=== PATIENT | female | born 1980 | race Asian ===

== ENCOUNTER 2018-12-12 08:48 | Emergency (ER) | payer SELFPAY ==
[~2018-12-12] VITALS: Ht 157.5 cm; Wt 64.0 kg
[2018-12-12] MEDS ORDERED: MECLIZINE 25MG TABLET PO ONE (10:30)
[2018-12-12 12:36] VITALS: BP 116/75
== END 2018-12-12 12:37 | disposition home or self-care (01) ==
LOC: ER 09:14
DX: O26.892 Other specified pregnancy related conditions, second trimester (principal); H81.10 Benign paroxysmal vertigo, unspecified ear; Z3A.19 19 weeks gestation of pregnancy
CPT/HCPCS: 81025; 99283; J8597